=== PATIENT | male | born 1960 | race Caucasian/White ===

== ENCOUNTER 2022-06-04 14:26 | Emergency (ER) | payer BC ==
[2022-06-04 14:55] VITALS: PULSE 80
[2022-06-04] MEDS: Tetracaine HCl/PF 0.5% 4 ML Bottle EYELF ONE (15:11)
[2022-06-04 15:19] VITALS: BP 138/94
== END 2022-06-04 15:25 | disposition home or self-care (01) ==
LOC: KA.ED 14:26
DX: S05.02XA Injury of conjunctiva and corneal abrasion without foreign body, left eye, initial encounter (principal); Z79.899 Other long term (current) drug therapy; Z79.84 Long term (current) use of oral hypoglycemic drugs
CPT/HCPCS: 99282; 99283

== ENCOUNTER 2024-11-02 09:31 | Day surgery (SDC) | payer MEDICARE ==
[2024-11-02] MEDS: Sodium Chloride 0.9% 10 ML Syringe FLUSH PRN (09:55)
[2024-11-02] MEDS: Sodium Chloride 0.9% 1,000 ML IV SCH (09:55)
[2024-11-02] MEDS ORDERED: Midazolam 1 MG/ML 2 ML SDV ONE (10:14)
[2024-11-02] MEDS ORDERED: Propofol 200 MG/20 ML SDV ONE (10:14)
[2024-11-02 11:45] VITALS: BP 138/85; PULSE 82
== END 2024-11-02 12:31 | disposition home or self-care (01) ==
LOC: KA.SDS 09:31
PROVIDERS: ATTEND Surgery
DX: Z12.11 Encounter for screening for malignant neoplasm of colon (principal); R19.5 Other fecal abnormalities; D12.8 Benign neoplasm of rectum; K57.30 Diverticulosis of large intestine without perforation or abscess without bleeding; I10 Essential (primary) hypertension; E11.9 Type 2 diabetes mellitus without complications; N40.0 Benign prostatic hyperplasia without lower urinary tract symptoms; E78.00 Pure hypercholesterolemia, unspecified; Z79.84 Long term (current) use of oral hypoglycemic drugs; Z79.899 Other long term (current) drug therapy
CPT/HCPCS: 00811; 82947; J2250; J2704; J7030